=== PATIENT | female | born 1990 | race Caucasian/White ===

== ENCOUNTER → 2018-02-15 | Outpatient (CLI) | payer OTHER ==
[~2018-02-15] MED LIST: MTRUNK PO; PRENTAB26 PO
== END | disposition home or self-care (01) ==
LOC: C.PAPS 13:58
PROVIDERS: ATTEND Physician Assistant
DX: Z12.4 Encounter for screening for malignant neoplasm of cervix (principal)

== ENCOUNTER 2019-10-11 10:24 | Inpatient (IN) ==
[2019-10-11] MEDS ORDERED: ePHEDrine sulfate 50 MG/ML AMP ONE (11:06)
[2019-10-11] MEDS ORDERED: fentaNYL citrate 100 MCG/2 ML VIAL ONE (11:06)
[2019-10-11] MEDS ORDERED: fentaNYL 2MCG/ML ROPIV 1.25MG/ML 100 ML BAG EPI ONE (11:07)
[2019-10-11] MEDS ORDERED: BUPIVACAINE 0.25% 30 ML VIAL ONE ×2 (11:07→16:45)
[2019-10-11] MEDS: LACTATED RINGER'S 1,000 ML IV PRN ×3 (11:07→20:06)
[2019-10-11] MEDS ORDERED: OXYTOCIN 30 UNITS/500 ML BAG IV PRN ×3 (11:08→23:06)
[2019-10-11] MEDS ORDERED: PENICILLIN G POTASSIUM 6 MU in DEXTROSE 5% 250 ML IV STA (11:08)
--- NOTE | 2019-10-11 11:18 | History & Physical Report ---
Date of Service October 11, 2019 Assessment & Plan (1) : Spontaneous labor. Start Pen G for GBS prophylaxis. Patient would like epidural. I discussed with her to notify RN immediately if/when water breaks, as baby is high in pelvis. History of Present Illness Chief Complaint: labor Primary Care Provider: Jarocho Liu MD 29yo @ 40 0/7 presents with regular contractions. No leaking fluid, no vaginal bleeding. + movement. complicated by obesity, GBS+. Allergies Allergy/AdvReac Type Severity Reaction Status Date / Time Sulfa (Sulfonamide Allergy Unknown UNKNOWN Verified 10/11/19 10:48 Antibiotics) Home Medications Home Medications Medication Instructions Recorded Confirmed Type PNV cmb#95-ferrous fumarate-FA 1 tab PO DAILY 10/11/19 10/11/19 History [] albuterol sulfate 2 puff INHALATION Q6H PRN 10/11/19 10/11/19 History Patient History Medical History (Updated 10/11/19 @ 10:47 by Kirstin Deluca RN) Asthma uses inhaler PRN History of varicella Surgical History S/P wisdom tooth extraction Family History (Updated 05/22/19 @ 16:21 by Conchis Lynne) Other No pertinent family history Social History (Updated 05/22/19 @ 16:20 by Conchis Lynne) Smoking Status: Former smoker Review of Systems All systems reviewed & are unremarkable except as noted in HPI & below Physical Exam Constitutional: WD/WN, vitals as above + obese FHT Cat 1 [place] Q 2-4 min SVE 5-6/100/-4 Bulging membranes. Palpable cranial sutures, but baby is high Respiratory: normal respiratory effort, lungs clear to auscultation no respiratory distress Cardiovascular: Rate/Rhythm: regular rate and regular rhythm Gastrointestinal (Abdomen): Inspection/Auscultation: abdomen normal to inspection Percussion/Palpation: abdomen soft; abdomen nontender Gravid. No s/s chorio or abruption. Skin: no rashes, warm and dry Psychiatric: A+Ox3, euthymic affect Results & Data Vital Signs (Past 12 Hours) Vital Signs Pulse BP 10/11/19 10:43 81 139/86
[2019-10-11 11:26] LABS: Hematocrit (blood only) 34.7 % (37-47); Hemoglobin 11.8 g/dL (12.0-16.0); Mean Corpuscular Hemoglobin 27.8 pg (25-34); Mean Corpuscular Volume 81.8 fL (80-100); Mean Platelet Volume 10.9 fL (7.4-10.4); Platelet Count 171 K/uL (130-400); RDW Coefficient of Variation 15.3 % (11.5-14.5); RDW Standard Deviation 44.7 fL (36.4-46.3); Red Blood Count 4.24 M/uL (4.2-5.4); White Blood Count 11.14 K/uL (4.8-10.8)
[2019-10-11] MEDS ORDERED: ONDANSETRON INJ 2 MG/ML 2 ML VIAL IV PRN (13:04)
[2019-10-11] MEDS ORDERED: DiphenhydrAMINE HCL 50 MG/ML VIAL IV PRN (13:04)
[2019-10-11] MEDS ORDERED: NALOXONE HCL 1 MG in SODIUM CHLORIDE 0.9% 1000ML 1,000 ML IV PRN (13:04)
[2019-10-11] MEDS ORDERED: ePHEDrine sulfate 50 MG/ML AMP IV PRN (13:04)
[2019-10-11] MEDS ORDERED: NALBUPHINE HCL INJ 10 MG/ML AMP IV PRN (13:04)
[2019-10-11] MEDS ORDERED: NALOXONE HCL 0.4 MG/1 ML VIAL/CARP IV PRN (13:04)
--- NOTE | 2019-10-11 13:04 | Anesthesiology Consultation ---
Date of Service October 11, 2019 Morbid Obesity at term Assessment & Plan (1) Encounter for pre-operative examination: Chart Review Chart Review: Acceptable Risk for Surgery and Patient NOT seen in Pre Admission Testing Consults Requested none ASA ASA3 Proposed Anesthesia Anesthesia Type: Labor Epidural Risk / Benefits Reviewed With: PT / POA / Parent / Guardian, Accepts Plan and Informed Consent Obtained History Height/Weight Height: 5 ft 6 in Weight: 153.768 kg Allergies Allergy/AdvReac Type Severity Reaction Status Date / Time Sulfa (Sulfonamide Allergy Unknown UNKNOWN Verified 10/11/19 10:48 Antibiotics) Medications Home Medications Medication Instructions Recorded Confirmed Last Taken PNV cmb#95-ferrous fumarate-FA 1 tab PO DAILY 10/11/19 10/11/19 10/10/19 08:00 [] albuterol sulfate 2 puff INHALATION Q6H PRN 10/11/19 10/11/19 Unknown Active Medications Generic Name Dose Route Start Last Admin Trade Name Freq PRN Reason Stop Dose Admin Lactated Ringer's 1,000 mls @ 125 mls/hr 10/11/19 11:08 10/11/19 12:14 Lr IV 10/13/19 11:07 125 mls/hr .Q8H PRN Administration L&D Protocol Protocol Past Medical History Medical History Asthma uses inhaler PRN History of varicella Exercise / Class Metabolic Activity II 4-5 Yardwork/Stairs/Walk up hill Past Family History Family History Other No pertinent family history Past Surgical History Surgical History S/P wisdom tooth extraction Past Anesthesia History No Hx of Anesthesia Complications and No Family Hx of Anesthesia Complications History of PONV No Hx of PONV and No Hx of Motion Sickness Social History Smoking Status: Former smoker Hx Alcohol Use: No Hx Substance Use: No substance use type: does not use Physical Exam Vital Signs Last Vital Signs Temp 36.9 C 10/11/19 10:46 Pulse 85 10/11/19 13:02 BP 162/76 H 10/11/19 13:02 Pulse Ox 100 10/11/19 13:01 ENMT Mouth: no dentition abnormality Thyromental Distance: > or= 3.5 Finger Breadths Mallampati Class: II Neck normal visual inspection Respiratory normal respiratory effort Auscultation: lungs clear to auscultation bilaterally Cardiovascular Rate/Rhythm: regular rate and regular rhythm Psychiatric Orientation: alert Testing Laboratory Results 10/11/19 11:19
--- NOTE | 2019-10-11 13:10 | Obstetrical Progress Note ---
Date of Service October 11, 2019 Subjective Comfortable with epidural. SROM clear fluid. SVE 6-7/80/-3 (head is applied) FHT Cat 1, [place] Q2-4 Continue to monitor, anticipate . Results & Data Vital Signs (Past 12 Hours) Vital Signs Temp Pulse BP Pulse Ox 10/11/19 13:08 87 139/85 10/11/19 13:06 94 H 99 10/11/19 13:04 136 H 187/114 H 10/11/19 13:02 85 162/76 H 10/11/19 13:01 83 100 10/11/19 13:00 86 146/75 H 10/11/19 12:56 93 H 99 10/11/19 12:54 88 151/72 H 10/11/19 12:52 90 148/70 H 10/11/19 12:51 89 100 10/11/19 12:50 88 142/83 H 10/11/19 12:46 83 98 10/11/19 12:44 86 134/62 10/11/19 12:41 83 99 10/11/19 12:38 86 136/72 10/11/19 12:36 84 136/63 100 10/11/19 12:34 82 147/71 H 10/11/19 12:32 90 145/63 H 10/11/19 12:31 90 99 10/11/19 12:30 144/68 H 10/11/19 12:28 81 133/73 10/11/19 12:26 92 H 131/80 99 10/11/19 12:24 80 149/85 H 10/11/19 12:22 82 148/87 H 10/11/19 12:21 82 98 10/11/19 12:19 82 144/77 H 10/11/19 12:18 81 139/75 10/11/19 12:16 90 97 10/11/19 12:15 80 136/71 10/11/19 12:13 81 136/66 10/11/19 12:11 84 144/67 H 96 10/11/19 12:10 89 139/65 10/11/19 12:06 94 H 96 10/11/19 12:01 89 98 10/11/19 11:56 95 H 98 10/11/19 11:51 87 96 10/11/19 11:46 78 97 10/11/19 11:41 84 96 10/11/19 11:36 83 96 10/11/19 11:29 83 98 10/11/19 11:24 83 95 10/11/19 11:19 84 96 10/11/19 11:14 87 96 10/11/19 10:46 36.9 C 10/11/19 10:43 81 139/86 PG Care Time/CCT Total # of Minutes Spent Total Time Spent with Patient: Total time spent is greater than 50% in coordination of care (as documented) at patient's floor/unit and/or counseling patient:
[2019-10-11] MEDS: fentaNYL 2MCG/ML ROPIV 1.25MG/ML 100 ML BAG EPI PRN ×3 (15:47→21:06)
[2019-10-11] MEDS: PENICILLIN G POTASSIUM 3 MU in DEXTROSE 5% 100 ML IV PRN ×2 (15:47→19:53)
--- NOTE | 2019-10-11 20:21 | Obstetrical Progress Note ---
Date of Service October 11, 2019 Subjective Complete dilation, +1 to +2 station. Pushing with ctx. Good effort, some pushes are productive; working on finding a method of pushing that is most productive. FHT with occ variable decels. +accels. [place] Q2 min Results & Data Vital Signs (Past 12 Hours) Vital Signs Temp Pulse Resp BP Pulse Ox 10/11/19 20:17 79 84 L 10/11/19 20:16 81 95 10/11/19 20:11 75 95 10/11/19 20:09 77 83 L 10/11/19 20:06 85 86 L 10/11/19 20:03 83 83 L 10/11/19 20:01 81 94 10/11/19 19:56 88 96 10/11/19 19:55 75 78 L 10/11/19 19:51 76 95 10/11/19 19:49 78 87 L 10/11/19 19:46 88 97 10/11/19 19:41 73 88 L 10/11/19 19:36 76 96 10/11/19 19:35 77 85 L 10/11/19 19:31 76 97 10/11/19 19:29 88 87 L 10/11/19 19:26 78 90 10/11/19 19:21 80 96 10/11/19 19:16 77 95 10/11/19 19:11 79 96 10/11/19 19:07 36.9 C 18 10/11/19 19:06 86 95 10/11/19 19:01 72 94 10/11/19 19:00 20 10/11/19 18:56 77 96 10/11/19 18:51 78 95 10/11/19 18:46 85 98 10/11/19 18:41 79 95 10/11/19 18:39 69 119/100 10/11/19 18:36 72 95 10/11/19 18:31 71 95 10/11/19 18:30 20 10/11/19 18:26 72 95 10/11/19 18:22 72 90/54 L 10/11/19 18:21 72 79/50 L 95 10/11/19 18:16 85 94 10/11/19 18:11 65 91 10/11/19 18:07 74 83/45 L 10/11/19 18:06 69 93 10/11/19 18:01 71 92 10/11/19 18:00 20 10/11/19 17:56 73 95 10/11/19 17:53 80 92/52 L 10/11/19 17:51 74 95 10/11/19 17:46 82 95 10/11/19 17:41 90 97 10/11/19 17:36 101 H 94 10/11/19 17:31 75 96 10/11/19 17:30 20 10/11/19 17:26 73 93 10/11/19 17:24 77 95/45 L 10/11/19 17:21 80 97 10/11/19 17:18 37.4 C 78 94 10/11/19 17:16 85 97 10/11/19 17:13 98 H 93 10/11/19 17:11 85 96 10/11/19 17:06 82 98 10/11/19 17:01 85 97 10/11/19 17:00 18 10/11/19 16:56 99 H 99 10/11/19 16:51 109 H 97 10/11/19 16:46 100 H 100 10/11/19 16:41 86 99 10/11/19 16:37 82 117/63 10/11/19 16:36 95 H 99 10/11/19 16:31 99 H 100 10/11/19 16:30 20 10/11/19 16:26 95 H 99 10/11/19 16:22 85 136/65 10/11/19 16:21 83 98 10/11/19 16:16 91 H 100 10/11/19 16:11 90 98 10/11/19 16:08 94 H 119/67 10/11/19 16:06 93 H 100 10/11/19 16:01 91 H 98 10/11/19 16:00 18 10/11/19 15:56 88 99 10/11/19 15:52 84 118/56 L 92 10/11/19 15:51 87 95 10/11/19 15:46 84 98 10/11/19 15:41 88 97 10/11/19 15:38 92 H 136/74 10/11/19 15:36 84 98 10/11/19 15:32 36.9 C 10/11/19 15:31 99 H 98 10/11/19 15:30 20 10/11/19 15:28 100 H 93 10/11/19 15:26 87 98 10/11/19 15:23 79 140/79 10/11/19 15:21 86 98 10/11/19 15:16 87 97 10/11/19 15:11 92 H 96 10/11/19 15:07 76 127/74 10/11/19 15:06 81 95 10/11/19 15:01 83 95 10/11/19 15:00 18 10/11/19 14:56 80 97 10/11/19 14:52 91 H 131/59 L 10/11/19 14:51 84 95 10/11/19 14:46 89 98 10/11/19 14:41 81 96 10/11/19 14:38 79 125/66 94 10/11/19 14:36 85 97 10/11/19 14:31 92 H 98 10/11/19 14:30 18 10/11/19 14:26 77 96 10/11/19 14:22 81 145/73 H 10/11/19 14:21 86 98 10/11/19 14:16 87 98 10/11/19 14:11 92 H 97 10/11/19 14:08 75 131/67 10/11/19 14:06 85 97 10/11/19 14:01 82 97 10/11/19 14:00 20 10/11/19 13:56 83 97 10/11/19 13:52 90 124/73 10/11/19 13:51 86 97 10/11/19 13:46 85 97 10/11/19 13:45 18 10/11/19 13:41 83 98 10/11/19 13:37 86 134/77 10/11/19 13:36 86 98 10/11/19 13:32 110 H 137/81 10/11/19 13:31 91 H 99 10/11/19 13:30 36.7 C 86 18 142/82 H 10/11/19 13:28 78 130/75 10/11/19 13:26 80 143/68 H 99 10/11/19 13:24 76 140/71 10/11/19 13:22 84 133/74 10/11/19 13:21 90 98 10/11/19 13:20 92 H 110/53 L 10/11/19 13:18 78 113/59 L 10/11/19 13:16 88 116/57 L 99 10/11/19 13:15 18 10/11/19 13:14 83 124/57 L 10/11/19 13:11 91 H 99 10/11/19 13:10 77 140/82 10/11/19 13:08 87 139/85 10/11/19 13:06 94 H 99 10/11/19 13:04 136 H 187/114 H 10/11/19 13:02 85 162/76 H 10/11/19 13:01 83 100 10/11/19 13:00 86 20 146/75 H 10/11/19 12:56 93 H 99 10/11/19 12:54 88 151/72 H 10/11/19 12:52 90 148/70 H 10/11/19 12:51 89 100 10/11/19 12:50 88 142/83 H 10/11/19 12:46 83 98 10/11/19 12:45 20 10/11/19 12:44 86 134/62 10/11/19 12:41 83 99 10/11/19 12:38 86 136/72 10/11/19 12:36 84 136/63 100 10/11/19 12:34 82 147/71 H 10/11/19 12:32 90 145/63 H 10/11/19 12:31 90 99 10/11/19 12:30 18 144/68 H 10/11/19 12:28 81 133/73 10/11/19 12:26 92 H 131/80 99 10/11/19 12:24 80 149/85 H 10/11/19 12:22 82 148/87 H 10/11/19 12:21 82 98 10/11/19 12:19 82 144/77 H 10/11/19 12:18 81 139/75 10/11/19 12:16 90 97 10/11/19 12:15 80 16 136/71 10/11/19 12:13 81 136/66 10/11/19 12:11 84 144/67 H 96 10/11/19 12:10 89 139/65 10/11/19 12:06 94 H 96 10/11/19 12:01 89 98 10/11/19 12:00 18 10/11/19 11:56 95 H 98 10/11/19 11:51 87 96 10/11/19 11:46 78 97 10/11/19 11:41 84 96 10/11/19 11:36 83 96 10/11/19 11:29 83 98 10/11/19 11:24 83 95 10/11/19 11:19 84 96 10/11/19 11:14 87 96 10/11/19 10:46 36.9 C 10/11/19 10:43 81 139/86 PG Care Time/CCT Total # of Minutes Spent Total Time Spent with Patient: Total time spent is greater than 50% in coordination of care (as documented) at patient's floor/unit and/or counseling patient:
[2019-10-11 22:15] LABS: Base Excess Cord Arterial Bld -2.4 mEq/L (-9-1.8); CO2 Cord Arterial Blood 55 mmHg (39.1-73.5); HCO3 Cord Arterial Blood 25 mmol/L (19.7-28.5); pH Cord Arterial Blood 7.28 (7.1-7.38)
[2019-10-11 22:21] LABS: Base Excess Cord Venous Blood -0.6 mEq/L (-7.7-1.9); Cord Venous Blood HCO3 22 mmol/L (18.4-26.8); Cord Venous Blood PCO2 33 mmHg (30.4-57.2); Cord Venous Blood PO2 35 mmHg (14.1-43.3); Cord Venous Blood pH 7.45 (7.20-7.44)
[2019-10-11 22:24] LABS: Oxygen Sat Cord Arterial Blood < 60.0 % (<60)
--- NOTE | 2019-10-11 22:43 | Delivery Summary ---
Vaginal Delivery Summary Date of Service October 11, 2019 Vaginal Delivery Summary Vaginal Delivery Summary: Pre-delivery diagnoses: 29yo @ 40 0/7, spontaneous labor, obesity, Rh negative Post-delivery diagnoses: same, shoulder dystocia, partial 3rd degree laceration Procedure: spontaneous vaginal delivery with McRobert's maneuver, attempt at posterior arm delivery, repair of 3rd degree perineal laceration Surgeon: Adilene Lema DO Complications: none Findings: Viable female . Apgars: 3,8. Weight 10lb 9oz. Estimated blood loss: 400ml Description of delivery: The patient progressed to complete with epidural anesthesia. She then began to push. She spontaneously vaginally delivered a viable female from the cephalic presentation. The head delivered in HORACIO position. The anterior shoulder did not immediately deliver, therefore patient was placed in McRobert's position. Due to patient's significant pannus, suprapubic pressure was not applied. Attempt made to deliver posterior arm, but this would not sweep medially. Clockwise rotation of shoulders, this allowed anterior shoulder to deliver, this was followed by the posterior shoulder, followed by the body. The cord was doubly clamped and cut and the baby was immediately handed over to waiting pediatrics team. A segment was retained for cord gases. Cord blood was obtained. The placenta was delivered spontaneously intact with a 3-vessel cord. The uterus and vagina were swept of clots and debris. IV pitocin was given. The uterus became firm. The cervix, vagina, and perineum were inspected and a partial 3rd degree perineal laceration was noted - the anal sphincter muscle was partially torn, approx 25% thickness torn. This was repaired with a [id number] suture of 3-0 Chromic, followed by standard repair of the perineal laceration with 3-0 vicryl. 1% lidocaine was used for local anesthetic. Excellent hemostasis was observed. At the conclusion of the repair, I debriefed the patient about the shoulder dystocia and events of delivery. Questions were answered. She related understanding. The mother and baby are recovering in stable and good condition in the room. Sponge and instrument counts were correct x 2. DO MONIQUE Rice
[2019-10-11] MEDS ORDERED: SUPERCREAM 0.870% 15 GM JAR EXT PRN (23:06)
[2019-10-11] MEDS ORDERED: DIPHTHERIA/TETANUS/PERTUSSIS 0.5 ML SYR/VIAL IM ONE (23:06)
[2019-10-11] MEDS ORDERED: BENZOCAINE 20% AER SPR 82.5 GM CAN EXT PRN (23:06)
[2019-10-11] MEDS ORDERED: bisacodyL 10 MG SUPP PR PRN (23:06)
[2019-10-11] MEDS ORDERED: ALBUTEROL HFA 8 GM INHALER INH PRN (23:06)
[2019-10-11] MEDS ORDERED: HYDROCORTISONE ACETATE 25 MG SUPP PR PRN (23:06)
[2019-10-11] MEDS ORDERED: OXYCODONE/ACETAMINOPHEN 5mg/325mg TAB PO PRN (23:06)
--- NOTE | 2019-10-11 23:17 | Anesthesia Procedure Note ---
Date of Service October 11, 2019 Anesthesia Post Epidural Note Vital Signs Vital Signs: Temp Pulse Resp BP Pulse Ox 37.5 C 117 H 20 125/74 100 10/11/19 22:22 10/11/19 23:12 10/11/19 22:57 10/11/19 23:12 10/11/19 22:17 Pain Intensity Bilateral Buttock: Pain Intensity: 1 Right Shoulder: Pain Intensity: 1 Notes Mental Status: alert / awake / arousable Nausea / Vomiting: adequately controlled Pain: adequately controlled Airway Patency, RR, SpO2: stable & adequate BP & HR: stable & adequate Hydration State: stable & adequate Neuraxial Anesthesia: was administered and sensory block is resolving Anesthetic Complications: no major complications apparent and Pt Satisfied with anesthetic care Epidural: Removed without complications and With tip intact
[2019-10-11] MEDS: IBUPROFEN 600 MG TAB PO PRN (23:35)
[2019-10-12 00:56] LABS: Hematocrit (blood only) 29.7 % (37-47); Mean Corpuscular Hemoglobin 27.9 pg (25-34); Mean Platelet Volume 10.5 fL (7.4-10.4); Platelet Count 170 K/uL (130-400); RDW Coefficient of Variation 15.5 % (11.5-14.5); RDW Standard Deviation 46.7 fL (36.4-46.3); Red Blood Count 3.58 M/uL (4.2-5.4); White Blood Count 19.39 K/uL (4.8-10.8)
[2019-10-12 00:59] LABS: Mean Corpuscular Hgb Conc 33.7 g/dL (32-36)
[2019-10-12 01:15] LABS: Creatinine Clr Calc Pharmacy 81.1 ml/min; Est GFR (African American) 51.6; Est GFR (Non-African American) 44.5; Potassium 3.8 mmol/L (3.5-5.1)
[2019-10-12 01:18] LABS: Albumin Globulin Ratio 0.6 (0.9-2); Bilirubin,Total 0.3 mg/dl (0.2-1); Globulin 3.4 gm/dl (2.5-4.0); Total Protein 5.4 gm/dl (6.4-8.2)
[2019-10-12] MEDS: ACETAMINOPHEN 325 MG TAB PO PRN ×3 (01:53→19:25)
[2019-10-12] MEDS: IBUPROFEN 600 MG TAB PO PRN ×3 (06:24→23:18)
[2019-10-12 06:56] LABS: Hematocrit (blood only) 29.1 % (37-47); Mean Corpuscular Hemoglobin 28.2 pg (25-34); Mean Corpuscular Hgb Conc 34.4 g/dL (32-36); Mean Corpuscular Volume 82.2 fL (80-100); Mean Platelet Volume 11.1 fL (7.4-10.4); Platelet Count 169 K/uL (130-400); RDW Coefficient of Variation 15.3 % (11.5-14.5); RDW Standard Deviation 45.1 fL (36.4-46.3); Red Blood Count 3.54 M/uL (4.2-5.4); White Blood Count 19.24 K/uL (4.8-10.8)
--- NOTE | 2019-10-12 06:57 | Obstetrical Progress Note ---
Date of Service October 12, 2019 Assessment & Plan (1) Encounter for care and examination after delivery: 29 yo complicated by GBS+ status, s/pp with shoulder dystocia - received Penicillin G prepartum - Hg stable at 10 - planning to bottle feed - progressing appropriately - continue supportive care Supervising Physician Co-Signing Physician Notes Resident Physician Supervision Note: I was present with Dr. Lawrence during the history and exam. I discussed the case with the resident and agree with the findings and plan as documented in the note. Any exceptions or clarifications are listed here: PPD#1 doing well. Baby is still in Level 2 nursery with CPAP, is moving all limbs. Anticpate DC home tomorrow for [place]. Documented By: Adilene Lema, DO Subjective No complaints this AM. Pain well controlled with motrin and tylenol. Review of Systems Constitutional: + fatigue; no fever and no chills Respiratory: no cough and no dyspnea Cardiovascular: + edema; no chest pain, no syncope and no calf pain Gastrointestinal: + cramping; no abdominal pain, no nausea, no vomiting, no constipation and no diarrhea/loose stools Genitourinary: no dysuria and no difficulty urinating Neurologic: no headache(s) Physical Exam Constitutional: well developed and well nourished Respiratory: normal respiratory effort; no respiratory distress, no labored breathing and no cough Auscultation: no crackles, no rales, no rhonchi and no wheezes Cardiovascular: Rate/Rhythm: regular rate and regular rhythm Heart Sounds: no gallop, no murmur and no cardiac rub Extremities: + pedal edema (1+ pitting edema to knees bilaterally) Gastrointestinal (Abdomen): Inspection/Auscultation: + abdomen distended and normal bowel sounds Percussion/Palpation: abdomen soft; no guarding Musculoskeletal: no tenderness to palpation of calves bilaterally Genitourinary: Uterus small and firm, palpable in midline at level of umbilicus, some tenderness to palpation. Results & Data Vital Signs (Past 12 Hours) Vital Signs Temp Pulse Pulse Resp BP BP Pulse Ox 10/12/19 04:40 36.5 C 81 16 137/85 10/12/19 03:40 124/85 10/12/19 02:30 123/78 10/12/19 01:30 36.8 C 94 H 16 131/84 10/12/19 00:27 37.1 C 84 18 159/76 H 10/12/19 00:12 100 H 151/80 H 10/12/19 00:03 98 H 146/88 H 10/11/19 23:59 93 H 162/77 H 10/11/19 23:57 94 H 20 212/91 H 10/11/19 23:27 100 H 20 148/76 H 10/11/19 23:12 117 H 18 125/74 10/11/19 22:57 113 H 20 146/80 H 10/11/19 22:42 113 H 20 138/100 10/11/19 22:22 37.5 C 88 18 137/77 10/11/19 22:17 90 100 10/11/19 22:12 91 H 97 10/11/19 22:07 97 H 97 10/11/19 22:02 95 H 97 10/11/19 21:57 106 H 96 10/11/19 21:52 99 H 96 10/11/19 21:47 82 78 L 10/11/19 21:46 81 83 L 10/11/19 21:41 86 96 10/11/19 21:38 86 88 L 10/11/19 21:36 102 H 86 L 10/11/19 21:31 84 74 L 10/11/19 21:26 83 76 L 10/11/19 21:25 78 85 L 10/11/19 21:21 85 95 10/11/19 21:17 74 81 L 10/11/19 21:16 80 96 10/11/19 21:11 74 98 10/11/19 21:06 75 97 10/11/19 21:01 81 96 10/11/19 20:59 81 83 L 10/11/19 20:56 89 98 10/11/19 20:53 92 H 82 L 10/11/19 20:51 80 100 10/11/19 20:46 78 103/59 L 96 10/11/19 20:45 78 80 L 10/11/19 20:44 37.1 C 10/11/19 20:41 73 99 10/11/19 20:40 79 81 L 10/11/19 20:36 80 99 10/11/19 20:34 79 81 L 10/11/19 20:31 76 85 L 10/11/19 20:29 87 84 L 10/11/19 20:26 81 97 10/11/19 20:23 80 81 L 10/11/19 20:21 83 96 10/11/19 20:17 79 84 L 10/11/19 20:16 81 95 10/11/19 20:11 75 95 10/11/19 20:09 77 83 L 10/11/19 20:06 85 86 L 10/11/19 20:03 83 83 L 10/11/19 20:01 81 94 10/11/19 19:56 88 96 10/11/19 19:55 75 78 L 10/11/19 19:51 76 95 10/11/19 19:49 78 87 L 10/11/19 19:46 88 97 10/11/19 19:41 73 88 L 10/11/19 19:36 76 96 10/11/19 19:35 77 85 L 10/11/19 19:31 76 97 10/11/19 19:29 88 87 L 10/11/19 19:26 78 90 10/11/19 19:21 80 96 10/11/19 19:16 77 95 10/11/19 19:11 79 96 10/11/19 19:07 36.9 C 18 10/11/19 19:06 86 95 10/11/19 19:01 72 94 10/11/19 19:00 20 10/11/19 18:56 77 96 PG Care Time/CCT Total # of Minutes Spent Total Time Spent with Patient: Total time spent is greater than 50% in coordination of care (as documented) at patient's floor/unit and/or counseling patient: Resident Activity Tracking Resident Involvement: Resident Care Provided Care Provided: OB Delivery
[2019-10-12] MEDS: DOCUSATE SODIUM 100 MG CAP PO SCH ×2 (08:21→19:25)
[2019-10-12] MEDS: PRENATAL VITAMIN 1 TAB PO SCH (08:21)
[2019-10-12] MEDS ORDERED: bisacodyL 5 MG TABEC PO SCH (20:00)
[2019-10-13 06:39] LABS: Hematocrit (blood only) 24.5 % (37-47); Hemoglobin 8.3 g/dL (12.0-16.0)
[2019-10-13] MEDS: DOCUSATE SODIUM 100 MG CAP PO SCH (08:14)
[2019-10-13] MEDS: PRENATAL VITAMIN 1 TAB PO SCH (08:14)
[2019-10-13] MEDS: ACETAMINOPHEN 325 MG TAB PO PRN ×2 (08:14→14:46)
--- NOTE | 2019-10-13 08:52 | Obstetrical Progress Note ---
Date of Service October 13, 2019 Assessment & Plan (1) Encounter for care and examination after delivery: Post day 2 from . Doing well. Stable for discharge but will transition to nesting as baby is in transition nursery. Subjective Ambulation: ambulating normally Voiding: no voiding problems Passing Gas:: Yes Diet Tolerance:: regular diet Lochia:: Moderate Feeding Type:: breast feeding Physical Exam Constitutional WD/WN, vitals as above Respiratory normal respiratory effort; no respiratory distress and no labored breathing Cardiovascular Rate/Rhythm: regular rate Gastrointestinal (Abdomen) Inspection/Auscultation: abdomen normal to inspection; abdomen not distended Percussion/Palpation: abdomen soft; abdomen nontender, no guarding and abdomen not rigid Genitourinary OB Exam Abdomen: + fundal height Fundus: + firm and + relation to umbilicus (below); not tender and not boggy Results & Data Vital Signs (Past 12 Hours) Vital Signs Temp Pulse Resp BP Pulse Ox 10/13/19 08:22 36.8 C 88 20 137/88 10/12/19 23:15 36.6 C 93 H 16 116/82 96
[2019-10-13] MEDS: IBUPROFEN 600 MG TAB PO PRN (16:08)
[2019-10-13 17:08] VITALS: BP 128/78; PULSE 92; TEMP 98.6; O2SAT 97
== END 2019-10-13 19:05 | disposition home or self-care (01) | DRG 768 ==
LOC: OPB 10:24 → 4S1 10:25 → 4S2 10-12 00:55